=== PATIENT | female | born 1980 | race Caucasian/White ===

== ENCOUNTER 2017-05-21 01:34 | Emergency (ER) | payer OTHER, BC ==
[~2017-05-21] VITALS: Ht 167.6 cm; Wt 101.7 kg
[2017-05-21 01:40] VITALS: TEMP 37; Ht 167.6 cm; Wt 101.7 kg
--- NOTE | 2017-05-21 02:57 | EMERGENCY ROOM VISIT NOTE ---
History First contact with patient: 02:09 Chief Complaint: CALF PAIN Stated Complaint: BURST VEIN IN CALF?,TENDER LUMP,BLACK&BLUE - WORK History of Present Illness The patient is a 37 year old female who presents to the Emergency Room with complaints of pain in her right calf. The patient reports that she was at work this evening and noticed some itching of the back of her right calf. She states that she then noticed a lump and bruising in the area where the itching was located. She denies any injury to the leg. She does report that she has been working more than usual this past week and has been standing a lot at work. She denies any history of blood clots. She denies any numbness or weakness. She states that there is only pain in the calf if she presses on it. She does not smoke or take control pills. She denies any recent travel. Review of Systems A complete 10 point review of systems was reviewed with the patient with pertinent positives and negatives as per history of present illness. All else were negative. Past Medical/Surgical History Medical Problems: (1) No significant past medical history Surgical Problems: (1) No significant past surgical history Social History Smoking Status: Never Smoker Occupation Status: employed Current/Historical Medications No Active Prescriptions or Reported Meds Physical Exam Vital Signs Date Time Temp Pulse Resp B/P (MAP) Pulse Ox O2 Delivery O2 Flow Rate FiO2 05/21/17 03:55 70 16 121/79 97 05/21/17 01:40 37.0 75 16 134/91 99 Room Air Physical Exam VITALS: Vitals are noted on the nurse's note and reviewed by myself. Vital signs stable. GENERAL: This is a 37-year-old female, in no acute distress, nondiaphoretic, well-developed well-nourished. HEART: Regular rate and rhythm without murmurs gallops or rubs. LUNGS: Clear to auscultation bilaterally without wheezes, rales or rhonchi. EXTREMITIES: There is a small area of bruising and tenderness to the posterior aspect of the right lower leg. No palpable cords. No erythema or swelling. NEURO: Patient was alert and oriented to person place and time. Medical Decision & Procedures ER Provider Diagnostic Interpretation: US VENOUS RIGHT LOWER EXTREMITY: No evidence of DVT within the right lower extremity. No sonographic abnormality identified at the area of calf pain. Radiologist: Rahul Brown MD Medical Decision Differential diagnosis includes DVT, superficial thrombosis, ruptured varicose vein, hematoma, among others. The patient was evaluated as above. Ultrasound of the right leg was performed and showed no evidence of DVT. Patient was instructed on conservative measures. She will follow-up with her primary care provider. She verbalized understanding of my assessment and treatment plan and was discharged home in good condition. Medication Reconcilliation Current Medication List: was personally reviewed by me Blood Pressure Screening Patient's blood pressure: Normal blood pressure Impression Primary Impression: Right calf pain Departure Information Dispostion Home / Self-Care Condition GOOD Prescriptions No Active Prescriptions or Reported Meds Referrals No Doctor, Assigned (PCP) Patient Instructions My [facility] Additional Instructions You may apply a heating pad to the leg for relief of the pain. For pain control, you can use the following [id number] medicines (if >12 yo): - Regular strength (325mg/tab) Tylenol (acetaminophen) 2 tabs every 4-6 hours as needed. Do not exceed 12 tablets in a 24 hour period. Avoid taking more than 4 grams (4000 mg) of Tylenol per day. This includes any other sources of acetaminophen you may take on a regular basis. - Regular strength (200 mg/tab) Advil (ibuprofen) 1-2 tabs every 4-6 hours as needed. Do not exceed a dose of 3200 mg per day. Follow-up with your primary care provider is symptoms do not improve. Return to the emergency department with any worsening or new/concerning symptoms.
[2017-05-21 03:55] VITALS: BP 121/79; PULSE 70; O2SAT 97
--- NOTE | 2017-05-21 07:08 | DIAGNOSTIC IMAGING REPORT ---
R VENOUS DOPP LOWER EXT UNILAT CLINICAL HISTORY: 37 years-old Female presenting with right calf pain, bruising and swelling. TECHNIQUE: Real-time grayscale and color and spectral Doppler ultrasound imaging of the veins of the right lower extremity was performed. Compression and augmentation were also utilized. COMPARISON: None. FINDINGS: Right: Common femoral vein: Patent. Greater saphenous vein: Patent. Deep femoral vein: Patent. Femoral vein: Patent. Popliteal vein: Patent. Calf veins: Patent. Other: No sonographic abnormality at the site of clinical interest. No fluid collection. No hyperemia. No significant subcutaneous edema. IMPRESSION: 1. No evidence of deep venous thrombosis. 2. No sonographic abnormality at the site of clinical interest. Electronically signed by: Parveen Bradley M.D. 05/21/2017 7:07 AM Dictated Date/Time: 05/21/2017 7:06 AM
== END 2017-05-21 03:56 | disposition home or self-care (01) ==
LOC: C.EDB 01:36
DX: M79.661 Pain in right lower leg (principal)